=== PATIENT | male | born 1990 | race Caucasian/White ===

== ENCOUNTER → 2023-07-25 07:58 | Outpatient (CLI) | payer OTHER, SELFPAY ==
--- NOTE | ~2023-07-25 | MR_ITS ---
MRI of the left elbow CLINICAL HISTORY: Disorder of tenosynovium TECHNIQUE: Proton-density and proton-density fat-sat images were performed in the axial, coronal, and sagittal planes. FINDINGS: Ulnar collateral ligament is intact. Radial collateral ligament and the lateral ulnar colla teral ligament are intact. The common flexor and common extensor tendon origins are unremarkable. No distinct evidence for medial or lateral epicondylitis. Bone marrow signals are unremarkable. No articular abnormality of those seen. No joint effusion. Biceps, brachialis, and triceps tendons are intact. There is mild nonspecific subcutaneous soft tissu e edema at the medial aspect of the elbow, site of the marker. No fluid collection or mass lesion efren dent. IMPRESSION: Nonspecific subcutaneous soft tissue edema at the medial aspect alveolar, at the area of the marker. Correlate for cellulitis or posttraumatic change. Reviewed, dictated and finalized at [facility]. [employer]ITATION TEACHER IMPRESSION: Nonspecific subcutaneous soft tissue edema at the medial aspect alveolar, at th e area of the marker. Correlate for cellulitis or posttraumatic change.
== END ==
DX: M67.922 Unspecified disorder of synovium and tendon, left upper arm (principal)
CPT/HCPCS: 73221